=== PATIENT | female | born 1965 ===

== ENCOUNTER 2019-10-31 13:19 | Inpatient (IN) | payer OTHER ==
[~2019-10-31] VITALS: Ht 152.4 cm; Wt 44.3 kg
[2019-10-31] VITALS (12 sets, daily range): BP systolic 118–150; BP diastolic 40–77
[2019-10-31] MEDS ORDERED: ALBUTEROL INH (13:58)
[2019-10-31] MEDS ORDERED: LOSA100T14 PO (13:58)
[2019-10-31] MEDS ORDERED: FOLI-17 PO (13:58)
[2019-10-31] MEDS ORDERED: AMLO-150 PO (13:58)
[2019-10-31] MEDS ORDERED: PROP20TA PO (13:58)
--- NOTE | 2019-10-31 13:58 | NUR ---
PT IS LAYING IN BED, GASPING FOR BREATH BETWEEN SENTENCES, O2 SATS ABOVE 90. PT STATES JAUNDICE OCCURS EVERY 3 MONTHS, NO SIGNS OF DISTRESS. PT ABLE TO GET SELF OUT OF CLOTHES AND INTO BED. PA TO BEDSIDE.
[2019-10-31] MEDS ORDERED: SODIUM CHLORIDE 0.9% 1,000ML IVBOLUS ONE (14:30)
[2019-10-31] MEDS ORDERED: SODIUM CHLORIDE FLUSH 10ML SYR IVF ONE (14:30)
--- NOTE | 2019-10-31 14:43 | NUR ---
Pt medicated per emar, piv established
[2019-10-31 14:46] LABS: ALANINE AMINOTRANSFERASE 332 U/L (12-78); ALBUMIN 3.9 g/dL (3.4-5.0); ANION GAP 22 mmol/L (5-15); CALCIUM 8.7 mg/dL (8.5-10.1); CHLORIDE 105 mmol/L (98-107); CREATININE 1.06 mg/dL (0.55-1.02)
[2019-10-31 14:47] LABS: INTERNATIONAL NORMALIZED RATIO 2.23 (0.93-1.1); PROTHROMBIN TIME 23.8 Seconds (9.6-11.5)
[2019-10-31 14:50] LABS: ALKALINE PHOSPHATASE 84 U/L (45-117); TOTAL PROTEIN 6.5 g/dL (6.4-8.2); TROPONIN I < 0.015 ng/mL (0.000-0.045)
[2019-10-31 14:56] LABS: MEAN CORPUSCULAR HEMOGLOBIN 29.9 pg (27.0-34.8); MEAN CORPUSCULAR HGB CONC 36.1 g/dL (32.4-35.8); MEAN CORPUSCULAR VOLUME 82.9 fL (80-100); RED BLOOD COUNT 0.94 x10^6/uL (3.82-5.3)
[2019-10-31 15:01] LABS: RED CELL DISTRIBUTION WIDTH 32.2 % (9.6-15.2)
--- NOTE | 2019-10-31 15:02 | NUR ---
CRITICAL LABS CALLED: [facility] 2.8 AND 7.[address] WAYNE NOTIFIED. PRIMARY RN AT BEDSIDE WITH THIS PT FOR LINE PLACEMENT.
[2019-10-31 15:06] LABS: MEAN PLATELET VOLUME 9.6 fL (7.4-10.4); PLATELET COUNT 19 x10^3/uL (130-400)
--- NOTE | 2019-10-31 15:10 | NUR ---
With Nancy NEWELL emergent transfusion verified with Dr. Wade. Pt has two pivs.
--- NOTE | 2019-10-31 15:14 | NUR ---
Cat informed of low h/h, report back to Melia NEWELL
--- NOTE | 2019-10-31 15:33 | NUR ---
DYE OPERATOR: ONC MD DR. TUCKER/DR. MESSER PAGED PER ERP DR. WAYNE REQUEST
--- NOTE | 2019-10-31 15:35 | NUR ---
NASAL CANNULA IN PLACE.
--- NOTE | 2019-10-31 15:47 | NUR ---
MYRA Ocampo RN, AND EPHRAIM Rodriguez RN WITNESSED CONSENT TO GIVE BLOOD BEFORE TRANSFUSION BEGAN. THIS RN AND EPHRAIM Rodriguez RN, CHECKED CORRECT BLOOD TYPE, W #, AND CORRECT PT. BLOOD TRANSFUSION BEGAN AT 1530. VS: TEMP 98.1, BP 121/40, HR 108, O2 100% ON RA, RR 29. 15 MINUTE VS AT 1545: TEMP 98.7, BP 124/55, HR 104, O2 100% ON RA, RR 22. PT REMAINS AWAKE AND ALERT, NO SIGNS OF DISTRESS. PT ABLE TO HOLD CUP OF ICE CHIPS AND CONCERNED ABOUT COVER FOR CUP TO PROTECT FROM GERMS, PT PROVIDED A PAPER TOWEL FOR THIS.
[2019-10-31 15:49] LABS: MD YES
--- NOTE | 2019-10-31 15:59 | NUR ---
REFINERY PROCESS ENGINEER: JUAN A MIRAMONTES PAGED PER ERP DR. WAYNE REQUEST.
[2019-10-31 16:17] LABS: BAND#(MANUAL) 0.03 x10^3/uL; BANDS%(MANUAL) 1 % (0-7); LYMPH#(MANUAL) 1.79 x10^3/uL (1-3.4); LYMPHS% (MANUAL) 69 % (22-44); MONOS#(MANUAL) 0.03 x10^3/uL (0.3-2.7); MONOS% (MANUAL) 1 % (2-9); SEG#(MANUAL) 0.75 x10^3/uL (1.8-6.8); SEGS% (MANUAL) 29 % (42-75)
[2019-10-31 16:19] LABS: ANISOCYTOSIS 2+; POLYCHROMASIA 1+; TEAR DROPS 1+
[2019-10-31 16:20] LABS: <PLATELET ESTIMATE> DECREASED; <PLT MORPHOLOGY> NORMAL PLT MORPH
[2019-10-31 16:21] LABS: OVALOCYTES 2+
[2019-10-31] MEDS ORDERED: SODIUM CHLORIDE FLUSH 10ML SYR IVF PRN (16:30)
--- NOTE | 2019-10-31 16:41 | NUR ---
Pt assisted to bedside commode.
--- NOTE | 2019-10-31 17:10 | NUR ---
PT LAYING IN BED, EYES CLOSED, RESPIRATIONS EVEN AND UNLABORED, NO SIGNS OF DISTRESS. PT STATES SHE FEELS BETTER. PT SKIN RETURNING TO PINK, SCLERA NOW MORE WHITE THAN YELLOW.
--- NOTE | 2019-10-31 17:26 | NUR ---
REPORT GIVEN TO REECE QUIROGA.
[2019-10-31] MEDS ORDERED: ONDANSETRON 2MG/ML, 2ML IVPush PRN (18:00)
--- NOTE | 2019-10-31 18:04 | NUR ---
PT TALKING WITH RN, NO SOB, MAKING JOKES.
--- NOTE | 2019-10-31 18:20 | NUR ---
SEE TRANSFUSION VITALS FOR HOURLY VITAL UPDATES.
[2019-10-31 18:54] LABS: ABSOLUTE RETICS # 0.06 x10^6/uL (0.5-2.5); RETICULOCYTE COUNT % 4.42 % (0.5-1.5)
[2019-10-31 18:56] LABS: RED BLOOD COUNT 1.36 x10^6/uL (3.82-5.3)
[2019-10-31 23:31] LABS: MEAN CORPUSCULAR HEMOGLOBIN 30.7 pg (27.0-34.8); MEAN CORPUSCULAR HGB CONC 35.1 g/dL (32.4-35.8); MEAN CORPUSCULAR VOLUME 87.3 fL (80-100); MEAN PLATELET VOLUME 8.6 fL (7.4-10.4); RED BLOOD COUNT 3.07 x10^6/uL (3.82-5.3); RED CELL DISTRIBUTION WIDTH 15.1 % (9.6-15.2)
[2019-10-31 23:33] LABS: PLATELET COUNT 25 x10^3/uL (130-400)
[2019-10-31 23:35] LABS: FIBRINOGEN 205 mg/dL (200-340); PARTIAL THROMBOPLASTIN TIME 26 Seconds (25-31); PROTHROMBIN TIME 16.5 Seconds (9.6-11.5); THROMBIN TIME 17.9 Seconds (14-19)
[2019-10-31 23:42] LABS: % IRON SATURATION 85 % (20-55); IRON LEVEL 259 mcg/dL (50-170); TOTAL IRON BINDING CAPACITY 306 mcg/dL (250-450)
[2019-11-01 00:17] LABS: BASOPHILS % (AUTO) 0 % (0-1); EOSINOPHILS % (AUTO) 0 % (1-7); LYMPHOCYTES % (AUTO) 73 % (22-44); MD SCAN; MONOCYTES # (AUTO) 0.01 x10^3/uL (0.2-0.8); MONOCYTES % (AUTO) 1 % (2-9); NEUTROPHILS # (AUTO) 0.47 x10^3/uL (1.8-6.8); NEUTROPHILS % (AUTO) 26 % (42-75)
[2019-11-01 05:05] LABS: ALBUMIN 3.6 g/dL (3.4-5.0); ANION GAP 9 mmol/L (5-15); CALCIUM 7.8 mg/dL (8.5-10.1); CHLORIDE 108 mmol/L (98-107)
[2019-11-01 05:09] LABS: MEAN CORPUSCULAR HEMOGLOBIN 30.8 pg (27.0-34.8); MEAN CORPUSCULAR HGB CONC 35.1 g/dL (32.4-35.8); MEAN CORPUSCULAR VOLUME 87.8 fL (80-100); MEAN PLATELET VOLUME 9.5 fL (7.4-10.4); RED BLOOD COUNT 3.07 x10^6/uL (3.82-5.3); RED CELL DISTRIBUTION WIDTH 15.6 % (9.6-15.2)
[2019-11-01 05:10] LABS: ALANINE AMINOTRANSFERASE 319 U/L (12-78); ALKALINE PHOSPHATASE 73 U/L (45-117); CREATINE KINASE, TOTAL 262 U/L (26-192); CREATININE 0.58 mg/dL (0.55-1.02); TOTAL PROTEIN 5.6 g/dL (6.4-8.2)
[2019-11-01 05:18] LABS: PLATELET COUNT 23 x10^3/uL (130-400)
[2019-11-01 05:44] LABS: MD YES
[2019-11-01 05:47] LABS: LYMPH#(MANUAL) 1.05 x10^3/uL (1-3.4); LYMPHS% (MANUAL) 70 % (22-44); NRBC % (MANUAL) 2 % (0-1); SEG#(MANUAL) 0.45 x10^3/uL (1.8-6.8); SEGS% (MANUAL) 30 % (42-75)
[2019-11-01 05:48] LABS: ANISOCYTOSIS 1+
[2019-11-01 05:49] LABS: <PLATELET ESTIMATE> DECREASED; <PLT MORPHOLOGY> NORMAL PLT MORPH; OVALOCYTES 1+; POLYCHROMASIA 1+
[2019-11-01 06:32] LABS: BILIRUBIN, DIRECT 1.4 mg/dL (0.1-0.2)
[2019-11-01 06:57] LABS: BILIRUBIN,INDIRECT 10.2 mg/dL (0.0-2.0); BILIRUBIN,TOTAL 11.6 mg/dL (0.2-1.0)
[2019-11-01 08:30] LABS: PT 1:1 MIX 11.7 Seconds (9.6-11.5)
[2019-11-01 16:36] VITALS: BP 121/60
[2019-11-01] MEDS ORDERED: POTASSIUM CHLORIDE 20 MEQ TAB.ER.PRT PO ONE (19:00)
[2019-11-01 20:09] VITALS: BP 132/70
[2019-11-01 21:50] LABS: MICROSCOPIC INDICATED
[2019-11-01 21:58] LABS: CULTURE INDICATED? NO
[2019-11-02 01:36] VITALS: BP 118/70
[2019-11-02 06:59] LABS: ALANINE AMINOTRANSFERASE 551 U/L (12-78); ALBUMIN 3.3 g/dL (3.4-5.0); ANION GAP 6 mmol/L (5-15); CALCIUM 7.8 mg/dL (8.5-10.1); CHLORIDE 108 mmol/L (98-107); CHOLESTEROL, TOTAL 56 mg/dL (140-239); CREATININE 0.64 mg/dL (0.55-1.02)
[2019-11-02 07:02] LABS: ALKALINE PHOSPHATASE 72 U/L (45-117); BILIRUBIN,TOTAL 5.6 mg/dL (0.2-1.0); TOTAL PROTEIN 5.6 g/dL (6.4-8.2)
[2019-11-02 07:03] LABS: HDL CHOLESTEROL (DIRECT) 32 mg/dL (40-60)
[2019-11-02 07:04] LABS: TRIGLYCERIDES 72 mg/dL (50-200); VLDL CHOLESTEROL 14 mg/dL (0-25)
[2019-11-02 07:29] LABS: INTERNATIONAL NORMALIZED RATIO 1.3 (0.93-1.1); PROTHROMBIN TIME 13.8 Seconds (9.6-11.5)
[2019-11-02 07:54] VITALS: BP 146/71
[2019-11-02 08:04] LABS: MEAN CORPUSCULAR HEMOGLOBIN 30.5 pg (27.0-34.8); MEAN CORPUSCULAR HGB CONC 34.8 g/dL (32.4-35.8); MEAN CORPUSCULAR VOLUME 87.6 fL (80-100); MEAN PLATELET VOLUME 9.8 fL (7.4-10.4); RED BLOOD COUNT 3.01 x10^6/uL (3.82-5.3); RED CELL DISTRIBUTION WIDTH 15.7 % (9.6-15.2)
[2019-11-02 08:05] LABS: CHOL/HDL RATIO 1.8; HDL CHOL % 55 % (28-40); LDL CHOLESTEROL,CALCULATED 11 mg/dL (54-169); LDL/HDL RATIO 0.3 (0.5-3.0)
[2019-11-02 08:07] LABS: PLATELET COUNT 17 x10^3/uL (130-400)
[2019-11-02] MEDS: LOSARTAN 100 MG TAB PO SCH (08:19)
[2019-11-02] MEDS: FOLIC ACID 1 MG TABLET PO SCH (08:20)
[2019-11-02] MEDS: AMLODIPINE 5 MG TABLET PO SCH (08:20)
[2019-11-02] MEDS: PROPRANOLOL 20 MG TABLET PO SCH (08:20)
[2019-11-02 09:26] LABS: MD YES
[2019-11-02 09:29] LABS: ANISOCYTOSIS 1+; EOS#(MANUAL) 0.01 x10^3/uL (0.0-0.4); EOS% (MANUAL) 1 % (1-7); LYMPH#(MANUAL) 1.09 x10^3/uL (1-3.4); LYMPHS% (MANUAL) 84 % (22-44); OVALOCYTES 1+; POLYCHROMASIA 1+; SEGS% (MANUAL) 15 % (42-75)
[2019-11-02 09:30] LABS: <PLATELET ESTIMATE> DECREASED; <PLT MORPHOLOGY> NORMAL PLT MORPH
[2019-11-02] MEDS: POTASSIUM CHLORIDE 20 MEQ TAB.ER.PRT PO SCH ×2 (09:52→20:40)
[2019-11-02] MEDS: ACETYLCYSTEINE 600 MG CAPSULE PO SCH ×2 (09:52→20:40)
[2019-11-02 14:40] VITALS: BP 118/65
[2019-11-02 17:46] LABS: OCCULT BLOOD NEGATIVE (NEGATIVE)
[2019-11-02 18:39] VITALS: BP 120/69
[2019-11-03 01:11] VITALS: BP 124/67
[2019-11-03 05:53] VITALS: BP 133/80
[2019-11-03 05:53] LABS: ALBUMIN 3.1 g/dL (3.4-5.0); ANION GAP 6 mmol/L (5-15); CALCIUM 7.8 mg/dL (8.5-10.1); CHLORIDE 112 mmol/L (98-107)
[2019-11-03 05:57] LABS: ALANINE AMINOTRANSFERASE 445 U/L (12-78); ALKALINE PHOSPHATASE 69 U/L (45-117); BILIRUBIN, DIRECT 0.4 mg/dL (0.1-0.2); CREATININE 0.53 mg/dL (0.55-1.02); TOTAL PROTEIN 5.6 g/dL (6.4-8.2)
[2019-11-03 06:33] LABS: MEAN CORPUSCULAR HEMOGLOBIN 29.8 pg (27.0-34.8); MEAN CORPUSCULAR HGB CONC 34.3 g/dL (32.4-35.8); MEAN CORPUSCULAR VOLUME 86.8 fL (80-100); MEAN PLATELET VOLUME 7.8 fL (7.4-10.4); RED BLOOD COUNT 2.74 x10^6/uL (3.82-5.3); RED CELL DISTRIBUTION WIDTH 16.5 % (9.6-15.2)
[2019-11-03 06:36] LABS: PLATELET COUNT 11 x10^3/uL (130-400)
[2019-11-03 06:37] LABS: MD YES
[2019-11-03 06:41] LABS: BAND#(MANUAL) 0.01 x10^3/uL; BANDS%(MANUAL) 1 % (0-7); EOS#(MANUAL) 0.01 x10^3/uL (0.0-0.4); EOS% (MANUAL) 1 % (1-7); LYMPH#(MANUAL) 1.01 x10^3/uL (1-3.4); LYMPHS% (MANUAL) 92 % (22-44); NRBC % (MANUAL) 1 % (0-1); SEG#(MANUAL) 0.07 x10^3/uL (1.8-6.8); SEGS% (MANUAL) 6 % (42-75)
[2019-11-03 06:43] LABS: <PLATELET ESTIMATE> DECREASED; <PLT MORPHOLOGY> NORMAL PLT MORPH; ANISOCYTOSIS 1+; OVALOCYTES 1+
[2019-11-03 07:40] VITALS: BP 147/62
[2019-11-03] MEDS: PROPRANOLOL 20 MG TABLET PO SCH (07:41)
[2019-11-03] MEDS: LOSARTAN 100 MG TAB PO SCH (07:41)
[2019-11-03] MEDS: AMLODIPINE 5 MG TABLET PO SCH (07:41)
[2019-11-03] MEDS: ACETYLCYSTEINE 600 MG CAPSULE PO SCH ×2 (07:41→21:45)
[2019-11-03] MEDS: FOLIC ACID 1 MG TABLET PO SCH (07:41)
[2019-11-03] MEDS ORDERED: REGADENOSON 0.4 MG/5 ML SYRINGE ONE (10:16)
[2019-11-03] MEDS: POTASSIUM CHLORIDE 20 MEQ TAB.ER.PRT PO SCH ×2 (11:16→21:45)
[2019-11-03] MEDS: PHYTONADIONE 10 MG/ML, 1ML SQ SCH (11:16)
[2019-11-03 15:42] VITALS: BP 147/77
[2019-11-03 19:24] VITALS: BP 147/74
[2019-11-04 01:48] VITALS: BP 143/85
[2019-11-04 05:56] LABS: ALBUMIN 3.2 g/dL (3.4-5.0); ANION GAP 3 mmol/L (5-15); CALCIUM 8.5 mg/dL (8.5-10.1); CHLORIDE 112 mmol/L (98-107)
[2019-11-04 06:00] LABS: ALANINE AMINOTRANSFERASE 365 U/L (12-78); ALKALINE PHOSPHATASE 71 U/L (45-117); BILIRUBIN,TOTAL 2.1 mg/dL (0.2-1.0); CREATININE 0.63 mg/dL (0.55-1.02); TOTAL PROTEIN 5.7 g/dL (6.4-8.2)
[2019-11-04 06:03] LABS: MEAN CORPUSCULAR HEMOGLOBIN 29.9 pg (27.0-34.8); MEAN CORPUSCULAR VOLUME 87.9 fL (80-100); RED BLOOD COUNT 2.78 x10^6/uL (3.82-5.3); RED CELL DISTRIBUTION WIDTH 15.8 % (9.6-15.2)
[2019-11-04 07:05] LABS: MD YES; MEAN PLATELET VOLUME 7.4 fL (7.4-10.4)
[2019-11-04 07:09] LABS: PLATELET COUNT 9 x10^3/uL (130-400)
[2019-11-04 07:15] LABS: EOS#(MANUAL) 0.02 x10^3/uL (0.0-0.4); EOS% (MANUAL) 2 % (1-7); LYMPH#(MANUAL) 1.07 x10^3/uL (1-3.4); LYMPHS% (MANUAL) 89 % (22-44); MONOS#(MANUAL) 0.04 x10^3/uL (0.3-2.7); MONOS% (MANUAL) 3 % (2-9); SEG#(MANUAL) 0.07 x10^3/uL (1.8-6.8); SEGS% (MANUAL) 6 % (42-75)
[2019-11-04 07:16] LABS: ANISOCYTOSIS 1+; OVALOCYTES 1+
[2019-11-04 07:18] LABS: <PLATELET ESTIMATE> DECREASED
[2019-11-04 07:19] LABS: <PLT MORPHOLOGY> NORMAL PLT MORPH
[2019-11-04 08:10] VITALS: BP 145/76
[2019-11-04] MEDS ORDERED: FENTANYL PF 100 MCG/2ML ONE (09:14)
[2019-11-04] MEDS: LOSARTAN 100 MG TAB PO SCH (09:14)
[2019-11-04] MEDS: PROPRANOLOL 20 MG TABLET PO SCH (09:15)
[2019-11-04] MEDS: ACETYLCYSTEINE 600 MG CAPSULE PO SCH ×2 (09:15→21:21)
[2019-11-04] MEDS ORDERED: NALOXONE 1 MG/ML, 2ML ONE (09:15)
[2019-11-04] MEDS: AMLODIPINE 5 MG TABLET PO SCH (09:15)
[2019-11-04] MEDS ORDERED: MIDAZOLAM 1 MG/ML, 5ML ONE (09:15)
[2019-11-04] MEDS ORDERED: FLUMAZENIL 0.1 MG/1 ML, 5ML ONE (09:15)
[2019-11-04] MEDS: POTASSIUM CHLORIDE 20 MEQ TAB.ER.PRT PO SCH ×2 (09:15→21:21)
[2019-11-04] MEDS: PHYTONADIONE 10 MG/ML, 1ML SQ SCH (09:15)
[2019-11-04] MEDS: FOLIC ACID 1 MG TABLET PO SCH (09:15)
[2019-11-04 10:40] VITALS: BP 112/71
[2019-11-04 14:30] VITALS: BP 122/77
[2019-11-04 19:52] VITALS: BP 126/59
[2019-11-05 01:08] VITALS: BP 136/70
[2019-11-05 05:17] LABS: INTERNATIONAL NORMALIZED RATIO 1.11 (0.93-1.1); PROTHROMBIN TIME 11.8 Seconds (9.6-11.5)
[2019-11-05 05:22] LABS: ANION GAP 6 mmol/L (5-15); CALCIUM 9.2 mg/dL (8.5-10.1); CHLORIDE 107 mmol/L (98-107); CREATININE 0.59 mg/dL (0.55-1.02)
[2019-11-05 05:33] LABS: MEAN CORPUSCULAR HEMOGLOBIN 30.1 pg (27.0-34.8); MEAN CORPUSCULAR HGB CONC 34.5 g/dL (32.4-35.8); MEAN CORPUSCULAR VOLUME 87.2 fL (80-100); MEAN PLATELET VOLUME 8.4 fL (7.4-10.4); RED BLOOD COUNT 2.68 x10^6/uL (3.82-5.3); RED CELL DISTRIBUTION WIDTH 16.1 % (9.6-15.2)
[2019-11-05 05:36] LABS: PLATELET COUNT 11 x10^3/uL (130-400)
[2019-11-05 05:59] LABS: MD YES
[2019-11-05 06:05] LABS: <PLATELET ESTIMATE> DECREASED; <PLT MORPHOLOGY> NORMAL PLT MORPH; ANISOCYTOSIS 1+; LYMPH#(MANUAL) 0.91 x10^3/uL (1-3.4); LYMPHS% (MANUAL) 91 % (22-44); MONOS#(MANUAL) 0.01 x10^3/uL (0.3-2.7); MONOS% (MANUAL) 1 % (2-9); NRBC % (MANUAL) 1 % (0-1); OVALOCYTES 1+; SEG#(MANUAL) 0.08 x10^3/uL (1.8-6.8); SEGS% (MANUAL) 8 % (42-75)
[2019-11-05 08:03] VITALS: BP 124/74
[2019-11-05] MEDS: PROPRANOLOL 20 MG TABLET PO SCH (08:51)
[2019-11-05] MEDS: ACETYLCYSTEINE 600 MG CAPSULE PO SCH ×2 (08:52→21:55)
[2019-11-05] MEDS: AMLODIPINE 5 MG TABLET PO SCH (08:52)
[2019-11-05] MEDS: FOLIC ACID 1 MG TABLET PO SCH (08:52)
[2019-11-05] MEDS: LOSARTAN 100 MG TAB PO SCH (08:53)
[2019-11-05] MEDS: POTASSIUM CHLORIDE 20 MEQ TAB.ER.PRT PO SCH ×2 (08:54→21:54)
[2019-11-05] MEDS: PHYTONADIONE 10 MG/ML, 1ML SQ SCH (08:56)
[2019-11-05 12:20] VITALS: BP 125/78
[2019-11-05 21:42] VITALS: BP 155/76
[2019-11-05 22:27] VITALS: BP 155/76
[2019-11-06] VITALS (10 sets, daily range): BP systolic 102–156; BP diastolic 68–91
[2019-11-06 06:03] LABS: ALBUMIN 3.7 g/dL (3.4-5.0); ANION GAP 7 mmol/L (5-15); CALCIUM 9.3 mg/dL (8.5-10.1); CHLORIDE 106 mmol/L (98-107)
[2019-11-06 06:07] LABS: ALANINE AMINOTRANSFERASE 330 U/L (12-78); ALKALINE PHOSPHATASE 87 U/L (45-117); BILIRUBIN,TOTAL 1.7 mg/dL (0.2-1.0); CREATININE 0.64 mg/dL (0.55-1.02); TOTAL PROTEIN 6.5 g/dL (6.4-8.2)
[2019-11-06 06:23] LABS: MEAN CORPUSCULAR HEMOGLOBIN 29.9 pg (27.0-34.8); MEAN CORPUSCULAR HGB CONC 34.6 g/dL (32.4-35.8); MEAN CORPUSCULAR VOLUME 86.4 fL (80-100); RED BLOOD COUNT 2.84 x10^6/uL (3.82-5.3)
[2019-11-06 06:52] LABS: MEAN PLATELET VOLUME 7.4 fL (7.4-10.4)
[2019-11-06 06:53] LABS: MD YES
[2019-11-06 06:55] LABS: LYMPH#(MANUAL) 1.12 x10^3/uL (1-3.4); LYMPHS% (MANUAL) 93 % (22-44); MONOS#(MANUAL) 0.02 x10^3/uL (0.3-2.7); MONOS% (MANUAL) 2 % (2-9); NRBC % (MANUAL) 1 % (0-1); SEG#(MANUAL) 0.06 x10^3/uL (1.8-6.8); SEGS% (MANUAL) 5 % (42-75)
[2019-11-06 06:56] LABS: <PLATELET ESTIMATE> DECREASED; <PLT MORPHOLOGY> QNS FOR PLT MORPH; OVALOCYTES 1+; PLATELET COUNT 7 x10^3/uL (130-400)
[2019-11-06] MEDS: LOSARTAN 100 MG TAB PO SCH (08:22)
[2019-11-06] MEDS: FOLIC ACID 1 MG TABLET PO SCH (08:23)
[2019-11-06] MEDS: PROPRANOLOL 20 MG TABLET PO SCH (08:23)
[2019-11-06] MEDS: AMLODIPINE 5 MG TABLET PO SCH (08:23)
[2019-11-06] MEDS: PHYTONADIONE 10 MG/ML, 1ML SQ SCH (08:24)
[2019-11-06] MEDS ORDERED: DIPHENHYDRAMINE 50 MG/ML, 1ML IVPush ONE (08:30)
[2019-11-06] MEDS ORDERED: DIPHENHYDRAMINE 50 MG/ML, 1ML ONE (08:31)
[2019-11-06] MEDS: POTASSIUM CHLORIDE 20 MEQ TAB.ER.PRT PO SCH ×2 (08:33→21:27)
[2019-11-06] MEDS: ACETYLCYSTEINE 600 MG CAPSULE PO SCH ×2 (08:33→21:27)
[2019-11-06] MEDS ORDERED: methylPREDNISolone SOD SUCC 40 MG/ML IV SCH (09:30)
[2019-11-06] MEDS: HYDROCORTISONE 100 MG INJ. IVPush SCH (14:36)
[2019-11-07 01:46] VITALS: BP 133/80
[2019-11-07 05:22] LABS: MEAN CORPUSCULAR HEMOGLOBIN 29.9 pg (27.0-34.8); MEAN CORPUSCULAR HGB CONC 34.7 g/dL (32.4-35.8); MEAN CORPUSCULAR VOLUME 86.2 fL (80-100); MEAN PLATELET VOLUME 8.5 fL (7.4-10.4); RED CELL DISTRIBUTION WIDTH 15.3 % (9.6-15.2)
[2019-11-07 05:26] LABS: PLATELET COUNT 44 x10^3/uL (130-400)
[2019-11-07 05:52] LABS: MD YES
[2019-11-07 05:57] LABS: LYMPH#(MANUAL) 0.73 x10^3/uL (1-3.4); LYMPHS% (MANUAL) 81 % (22-44); MONOS#(MANUAL) 0.01 x10^3/uL (0.3-2.7); MONOS% (MANUAL) 1 % (2-9); SEG#(MANUAL) 0.16 x10^3/uL (1.8-6.8); SEGS% (MANUAL) 18 % (42-75)
[2019-11-07 05:59] LABS: <PLATELET ESTIMATE> DECREASED; <PLT MORPHOLOGY> NORMAL PLT MORPH; OVALOCYTES 1+
[2019-11-07 07:58] VITALS: BP 137/76
[2019-11-07 10:18] VITALS: BP 128/69
[2019-11-07] MEDS: POTASSIUM CHLORIDE 20 MEQ TAB.ER.PRT PO SCH ×2 (10:22→21:14)
[2019-11-07] MEDS: ACETYLCYSTEINE 600 MG CAPSULE PO SCH ×2 (10:22→22:47)
[2019-11-07] MEDS: FOLIC ACID 1 MG TABLET PO SCH (10:23)
[2019-11-07] MEDS: PROPRANOLOL 20 MG TABLET PO SCH (10:23)
[2019-11-07] MEDS: AMLODIPINE 5 MG TABLET PO SCH (10:24)
[2019-11-07] MEDS: LOSARTAN 100 MG TAB PO SCH (10:24)
[2019-11-07] MEDS: PHYTONADIONE 10 MG/ML, 1ML SQ SCH (10:24)
[2019-11-07 13:42] VITALS: BP 107/60
[2019-11-07 18:58] VITALS: BP 104/65
[2019-11-08 04:36] VITALS: BP 126/75
[2019-11-08 08:06] VITALS: BP 132/71
[2019-11-08] MEDS: PROPRANOLOL 20 MG TABLET PO SCH (08:28)
[2019-11-08] MEDS: AMLODIPINE 5 MG TABLET PO SCH (08:28)
[2019-11-08] MEDS: FOLIC ACID 1 MG TABLET PO SCH (08:28)
[2019-11-08] MEDS: POTASSIUM CHLORIDE 20 MEQ TAB.ER.PRT PO SCH ×2 (08:29→20:12)
[2019-11-08] MEDS: ACETYLCYSTEINE 600 MG CAPSULE PO SCH ×2 (08:33→20:12)
[2019-11-08 08:37] LABS: ALANINE AMINOTRANSFERASE 253 U/L (12-78); ANION GAP 5 mmol/L (5-15); CALCIUM 9.1 mg/dL (8.5-10.1); CHLORIDE 107 mmol/L (98-107); CREATININE 0.73 mg/dL (0.55-1.02)
[2019-11-08 08:39] LABS: ALKALINE PHOSPHATASE 94 U/L (45-117); BILIRUBIN,TOTAL 1.9 mg/dL (0.2-1.0); TOTAL PROTEIN 6.9 g/dL (6.4-8.2)
[2019-11-08 08:53] LABS: MEAN CORPUSCULAR HEMOGLOBIN 29.9 pg (27.0-34.8); MEAN CORPUSCULAR HGB CONC 34.9 g/dL (32.4-35.8); MEAN CORPUSCULAR VOLUME 85.8 fL (80-100); MEAN PLATELET VOLUME 8.3 fL (7.4-10.4); RED BLOOD COUNT 2.45 x10^6/uL (3.82-5.3); RED CELL DISTRIBUTION WIDTH 14.8 % (9.6-15.2)
[2019-11-08 08:54] LABS: MD YES; PLATELET COUNT 37 x10^3/uL (130-400)
[2019-11-08 09:17] LABS: <PLATELET ESTIMATE> DECREASED; <PLT MORPHOLOGY> NORMAL PLT MORPH; EOS#(MANUAL) 0.01 x10^3/uL (0.0-0.4); EOS% (MANUAL) 1 % (1-7); LYMPHS% (MANUAL) 82 % (22-44); OVALOCYTES 1+; SEG#(MANUAL) 0.19 x10^3/uL (1.8-6.8); SEGS% (MANUAL) 17 % (42-75)
[2019-11-08] MEDS: LOSARTAN 100 MG TAB PO SCH (09:58)
[2019-11-08 14:41] VITALS: BP 128/68
[2019-11-08 20:23] VITALS: BP 115/72
[2019-11-09 02:14] VITALS: BP 112/69
[2019-11-09] MEDS: CEFEPIME 2 GM in DEXTROSE 5% 100 ML IV SCH ×3 (03:15→19:49)
[2019-11-09 07:51] VITALS: BP 98/63
[2019-11-09 08:19] LABS: ALANINE AMINOTRANSFERASE 213 U/L (12-78); ALBUMIN 4.1 g/dL (3.4-5.0); ANION GAP 5 mmol/L (5-15); CALCIUM 9.4 mg/dL (8.5-10.1); CHLORIDE 106 mmol/L (98-107)
[2019-11-09 08:22] LABS: ALKALINE PHOSPHATASE 106 U/L (45-117); BILIRUBIN,TOTAL 2.9 mg/dL (0.2-1.0); CREATININE 0.76 mg/dL (0.55-1.02); TOTAL PROTEIN 7.5 g/dL (6.4-8.2)
[2019-11-09 08:32] LABS: MD YES; MEAN CORPUSCULAR HEMOGLOBIN 29.5 pg (27.0-34.8); MEAN CORPUSCULAR HGB CONC 34.2 g/dL (32.4-35.8); MEAN CORPUSCULAR VOLUME 86.4 fL (80-100); RED BLOOD COUNT 2.47 x10^6/uL (3.82-5.3); RED CELL DISTRIBUTION WIDTH 14.6 % (9.6-15.2)
[2019-11-09 08:51] LABS: PLATELET COUNT 27 x10^3/uL (130-400)
[2019-11-09 08:55] LABS: LYMPH#(MANUAL) 1.23 x10^3/uL (1-3.4); LYMPHS% (MANUAL) 82 % (22-44); SEG#(MANUAL) 0.27 x10^3/uL (1.8-6.8); SEGS% (MANUAL) 18 % (42-75)
[2019-11-09 08:56] LABS: <PLATELET ESTIMATE> DECREASED; <PLT MORPHOLOGY> NORMAL PLT MORPH; OVALOCYTES 1+
[2019-11-09] MEDS: POTASSIUM CHLORIDE 20 MEQ TAB.ER.PRT PO SCH ×2 (08:59→19:49)
[2019-11-09] MEDS: AMLODIPINE 5 MG TABLET PO SCH (09:00)
[2019-11-09] MEDS: LOSARTAN 50MG TABLET PO SCH (09:00)
[2019-11-09] MEDS: PROPRANOLOL 20 MG TABLET PO SCH (09:00)
[2019-11-09] MEDS: ACETYLCYSTEINE 600 MG CAPSULE PO SCH (09:00)
[2019-11-09] MEDS: FOLIC ACID 1 MG TABLET PO SCH (09:02)
[2019-11-09] MEDS: SODIUM CHLORIDE 0.9% 1,000 ML IV SCH ×2 (11:02→17:01)
[2019-11-09 11:14] LABS: CULTURE INDICATED? NO; MICROSCOPIC AUTO
[2019-11-09 12:49] VITALS: BP 116/60
[2019-11-09 19:34] VITALS: BP 109/67
[2019-11-10] VITALS (8 sets, daily range): BP systolic 99–141; BP diastolic 60–77
[2019-11-10] MEDS: CEFEPIME 2 GM in DEXTROSE 5% 100 ML IV SCH ×4 (03:19→20:49)
[2019-11-10] MEDS: SODIUM CHLORIDE 0.9% 1,000 ML IV SCH ×3 (03:20→20:49)
[2019-11-10 07:14] LABS: MEAN CORPUSCULAR HEMOGLOBIN 30.1 pg (27.0-34.8); MEAN CORPUSCULAR HGB CONC 35.3 g/dL (32.4-35.8); MEAN CORPUSCULAR VOLUME 85.2 fL (80-100); RED BLOOD COUNT 1.96 x10^6/uL (3.82-5.3); RED CELL DISTRIBUTION WIDTH 14.3 % (9.6-15.2)
[2019-11-10 07:15] LABS: ALANINE AMINOTRANSFERASE 171 U/L (12-78); ALBUMIN 3.5 g/dL (3.4-5.0); ANION GAP 6 mmol/L (5-15); CALCIUM 8.7 mg/dL (8.5-10.1); CHLORIDE 107 mmol/L (98-107); CREATININE 0.74 mg/dL (0.55-1.02)
[2019-11-10 07:17] LABS: ALKALINE PHOSPHATASE 93 U/L (45-117); BILIRUBIN,TOTAL 1.9 mg/dL (0.2-1.0); TOTAL PROTEIN 6.6 g/dL (6.4-8.2)
[2019-11-10 07:36] LABS: MEAN PLATELET VOLUME 8.9 fL (7.4-10.4)
[2019-11-10 07:37] LABS: MD YES
[2019-11-10 07:43] LABS: PLATELET COUNT 18 x10^3/uL (130-400)
[2019-11-10 07:47] LABS: <PLATELET ESTIMATE> DECREASED; <PLT MORPHOLOGY> NORMAL PLT MORPH; LYMPH#(MANUAL) 1.06 x10^3/uL (1-3.4); LYMPHS% (MANUAL) 88 % (22-44); OVALOCYTES 1+; SEG#(MANUAL) 0.14 x10^3/uL (1.8-6.8); SEGS% (MANUAL) 12 % (42-75)
[2019-11-10 08:46] LABS: INTERNATIONAL NORMALIZED RATIO 1.2 (0.93-1.1); PROTHROMBIN TIME 12.7 Seconds (9.6-11.5)
[2019-11-10 09:04] LABS: ABSOLUTE RETICS # 0.003 x10^6/uL (0.5-2.5); RETICULOCYTE COUNT % 0.16 % (0.5-1.5)
[2019-11-10 09:06] LABS: RED BLOOD COUNT 1.96 x10^6/uL (3.82-5.3)
[2019-11-10] MEDS ORDERED: HYDROCORTISONE 100 MG INJ. IVPush PRN (10:00)
[2019-11-10] MEDS: PROPRANOLOL 20 MG TABLET PO SCH (10:14)
[2019-11-10] MEDS: POTASSIUM CHLORIDE 20 MEQ TAB.ER.PRT PO SCH ×2 (10:14→20:49)
[2019-11-10] MEDS: LOSARTAN 50MG TABLET PO SCH (10:15)
[2019-11-10] MEDS: AMLODIPINE 5 MG TABLET PO SCH (10:15)
[2019-11-10] MEDS: FOLIC ACID 1 MG TABLET PO SCH (10:15)
[2019-11-10] MEDS: HYDROCORTISONE 100 MG INJ. IVPush SCH (10:15)
[2019-11-11] VITALS (7 sets, daily range): BP systolic 117–150; BP diastolic 67–76
[2019-11-11] MEDS: SODIUM CHLORIDE 0.9% 1,000 ML IV SCH ×2 (04:41→16:00)
[2019-11-11] MEDS: CEFEPIME 2 GM in DEXTROSE 5% 100 ML IV SCH ×3 (04:41→19:57)
[2019-11-11 06:57] LABS: ANION GAP 7 mmol/L (5-15); CALCIUM 8.1 mg/dL (8.5-10.1); CHLORIDE 111 mmol/L (98-107)
[2019-11-11 06:58] LABS: CREATININE 0.64 mg/dL (0.55-1.02); MEAN CORPUSCULAR HEMOGLOBIN 30.1 pg (27.0-34.8); MEAN CORPUSCULAR HGB CONC 34.9 g/dL (32.4-35.8); MEAN CORPUSCULAR VOLUME 86.2 fL (80-100); RED BLOOD COUNT 2.32 x10^6/uL (3.82-5.3); RED CELL DISTRIBUTION WIDTH 13.9 % (9.6-15.2)
[2019-11-11 07:02] LABS: MEAN PLATELET VOLUME 8.7 fL (7.4-10.4)
[2019-11-11 07:03] LABS: PLATELET COUNT 12 x10^3/uL (130-400)
[2019-11-11 07:15] LABS: MD YES
[2019-11-11 07:19] LABS: LYMPH#(MANUAL) 1.02 x10^3/uL (1-3.4); LYMPHS% (MANUAL) 93 % (22-44); MONOS#(MANUAL) 0.02 x10^3/uL (0.3-2.7); MONOS% (MANUAL) 2 % (2-9); NRBC % (MANUAL) 1 % (0-1); OVALOCYTES 1+; SEG#(MANUAL) 0.06 x10^3/uL (1.8-6.8); SEGS% (MANUAL) 5 % (42-75)
[2019-11-11 07:20] LABS: <PLATELET ESTIMATE> DECREASED; <PLT MORPHOLOGY> NORMAL PLT MORPH
[2019-11-11] MEDS: AMLODIPINE 5 MG TABLET PO SCH (07:44)
[2019-11-11] MEDS: LOSARTAN 50MG TABLET PO SCH (07:44)
[2019-11-11] MEDS: PROPRANOLOL 20 MG TABLET PO SCH (07:44)
[2019-11-11] MEDS: POTASSIUM CHLORIDE 20 MEQ TAB.ER.PRT PO SCH ×4 (07:44→21:11)
[2019-11-11] MEDS: FOLIC ACID 1 MG TABLET PO SCH (07:44)
[2019-11-11] MEDS ORDERED: methylPREDNISolone SOD SUCC 125 MG/2 ML IVPush PRN (08:00)
[2019-11-12] MEDS: SODIUM CHLORIDE 0.9% 1,000 ML IV SCH ×3 (00:07→17:56)
[2019-11-12 00:13] VITALS: BP 148/72
[2019-11-12] MEDS: CEFEPIME 2 GM in DEXTROSE 5% 100 ML IV SCH ×3 (04:17→19:38)
[2019-11-12 04:18] LABS: ANION GAP 5 mmol/L (5-15); CHLORIDE 113 mmol/L (98-107); CREATININE 0.57 mg/dL (0.55-1.02)
[2019-11-12 04:25] LABS: ABSOLUTE RETICS # 0.006 x10^6/uL (0.5-2.5); RETICULOCYTE COUNT % 0.21 % (0.5-1.5)
[2019-11-12 04:29] LABS: RED BLOOD COUNT 3.02 x10^6/uL (3.82-5.3)
[2019-11-12 04:40] LABS: MEAN CORPUSCULAR HEMOGLOBIN 31.2 pg (27.0-34.8); MEAN CORPUSCULAR HGB CONC 35.4 g/dL (32.4-35.8); MEAN CORPUSCULAR VOLUME 88.1 fL (80-100); RED BLOOD COUNT 3.03 x10^6/uL (3.82-5.3); RED CELL DISTRIBUTION WIDTH 14.5 % (9.6-15.2)
[2019-11-12 05:05] LABS: MD YES; MEAN PLATELET VOLUME 8.9 fL (7.4-10.4)
[2019-11-12 05:06] LABS: PLATELET COUNT 11 x10^3/uL (130-400)
[2019-11-12 05:16] LABS: LYMPHS% (MANUAL) 83 % (22-44); SEGS% (MANUAL) 17 % (42-75)
[2019-11-12 05:17] LABS: <PLATELET ESTIMATE> DECREASED; <PLT MORPHOLOGY> NORMAL PLT MORPH; OVALOCYTES 1+
[2019-11-12 06:52] VITALS: BP 159/74
[2019-11-12] MEDS: LOSARTAN 50MG TABLET PO SCH (08:37)
[2019-11-12] MEDS: AMLODIPINE 5 MG TABLET PO SCH (08:37)
[2019-11-12] MEDS: POTASSIUM CHLORIDE 20 MEQ TAB.ER.PRT PO SCH ×3 (08:37→20:38)
[2019-11-12] MEDS: PROPRANOLOL 20 MG TABLET PO SCH (08:38)
[2019-11-12] MEDS: FOLIC ACID 1 MG TABLET PO SCH (08:38)
[2019-11-12 12:27] VITALS: BP 155/76
[2019-11-12 19:21] VITALS: BP 130/72
[2019-11-13 00:22] VITALS: BP 146/70
[2019-11-13] MEDS: SODIUM CHLORIDE 0.9% 1,000 ML IV SCH ×3 (01:05→21:05)
[2019-11-13] MEDS: CEFEPIME 2 GM in DEXTROSE 5% 100 ML IV SCH ×2 (04:09→15:09)
[2019-11-13 04:54] LABS: MEAN CORPUSCULAR HEMOGLOBIN 31.1 pg (27.0-34.8); MEAN CORPUSCULAR HGB CONC 35.4 g/dL (32.4-35.8); MEAN CORPUSCULAR VOLUME 87.8 fL (80-100); MEAN PLATELET VOLUME 7.4 fL (7.4-10.4); RED BLOOD COUNT 2.85 x10^6/uL (3.82-5.3); RED CELL DISTRIBUTION WIDTH 13.7 % (9.6-15.2)
[2019-11-13 04:57] LABS: PLATELET COUNT 7 x10^3/uL (130-400)
[2019-11-13 04:59] LABS: ALANINE AMINOTRANSFERASE 114 U/L (12-78); ALBUMIN 3.6 g/dL (3.4-5.0); ANION GAP 6 mmol/L (5-15); CALCIUM 8.8 mg/dL (8.5-10.1); CHLORIDE 112 mmol/L (98-107); CREATININE 0.54 mg/dL (0.55-1.02)
[2019-11-13 05:01] LABS: ALKALINE PHOSPHATASE 93 U/L (45-117); BILIRUBIN,TOTAL 1.9 mg/dL (0.2-1.0); TOTAL PROTEIN 6.7 g/dL (6.4-8.2)
[2019-11-13] MEDS ORDERED: methylPREDNISolone SOD SUCC 125 MG/2 ML IVPush ONE (06:00)
[2019-11-13 06:09] LABS: MD YES
[2019-11-13 06:12] LABS: LYMPH#(MANUAL) 1.13 x10^3/uL (1-3.4); LYMPHS% (MANUAL) 94 % (22-44); SEG#(MANUAL) 0.07 x10^3/uL (1.8-6.8); SEGS% (MANUAL) 6 % (42-75)
[2019-11-13 06:13] LABS: <PLATELET ESTIMATE> DECREASED; <PLT MORPHOLOGY> NORMAL PLT MORPH; OVALOCYTES 1+
[2019-11-13 07:37] VITALS: BP 113/61
[2019-11-13] MEDS: LOSARTAN 50MG TABLET PO SCH (09:30)
[2019-11-13] MEDS: POTASSIUM CHLORIDE 20 MEQ TAB.ER.PRT PO SCH ×3 (09:30→21:05)
[2019-11-13] MEDS: FOLIC ACID 1 MG TABLET PO SCH (09:31)
[2019-11-13] MEDS: AMLODIPINE 5 MG TABLET PO SCH (09:31)
[2019-11-13] MEDS: PROPRANOLOL 20 MG TABLET PO SCH (09:31)
[2019-11-13] MEDS ORDERED: methylPREDNISolone SOD SUCC 125 MG/2 ML ONE (10:55)
[2019-11-13 11:55] VITALS: BP 124/52
[2019-11-13 12:28] VITALS: BP 115/63
[2019-11-13 15:02] VITALS: BP 113/67
[2019-11-13 18:46] VITALS: BP 121/70
[2019-11-14] MEDS: CEFEPIME 2 GM in DEXTROSE 5% 100 ML IV SCH ×2 (00:01→08:39)
[2019-11-14 02:00] VITALS: BP 123/67
[2019-11-14] MEDS: SODIUM CHLORIDE 0.9% 1,000 ML IV SCH ×2 (05:05→13:00)
[2019-11-14 07:18] VITALS: BP 124/72
[2019-11-14 08:26] LABS: ALBUMIN 3.7 g/dL (3.4-5.0); ANION GAP 9 mmol/L (5-15); CHLORIDE 106 mmol/L (98-107)
[2019-11-14] MEDS: POTASSIUM CHLORIDE 20 MEQ TAB.ER.PRT PO SCH (08:30)
[2019-11-14] MEDS: FOLIC ACID 1 MG TABLET PO SCH (08:31)
[2019-11-14] MEDS: AMLODIPINE 5 MG TABLET PO SCH (08:31)
[2019-11-14] MEDS: LOSARTAN 50MG TABLET PO SCH (08:31)
[2019-11-14 08:32] LABS: ALANINE AMINOTRANSFERASE 97 U/L (12-78); ALKALINE PHOSPHATASE 97 U/L (45-117); BILIRUBIN,TOTAL 1.6 mg/dL (0.2-1.0); CREATININE 0.67 mg/dL (0.55-1.02)
[2019-11-14] MEDS: PROPRANOLOL 20 MG TABLET PO SCH (08:33)
[2019-11-14 08:55] LABS: MEAN CORPUSCULAR HGB CONC 35.1 g/dL (32.4-35.8); MEAN CORPUSCULAR VOLUME 88.3 fL (80-100); MEAN PLATELET VOLUME 8.3 fL (7.4-10.4); PLATELET COUNT 22 x10^3/uL (130-400); RED BLOOD COUNT 2.87 x10^6/uL (3.82-5.3); RED CELL DISTRIBUTION WIDTH 13.9 % (9.6-15.2)
[2019-11-14 08:56] LABS: MD YES
[2019-11-14 09:04] LABS: <PLATELET ESTIMATE> DECREASED; <PLT MORPHOLOGY> NORMAL PLT MORPH; LYMPHS% (MANUAL) 86 % (22-44); OVALOCYTES 1+; SEGS% (MANUAL) 14 % (42-75)
[2019-11-14] MEDS ORDERED: FLUC200T PO (10:05)
[2019-11-14] MEDS ORDERED: ACYC-114 PO (10:05)
[2019-11-14] MEDS ORDERED: TRAM50TA2 PO (10:05)
[2019-11-14] MEDS ORDERED: AMOX1TAB64 PO (10:05)
[2019-11-14] MEDS ORDERED: LEVO500T47 PO (10:40)
[2019-11-14 14:33] VITALS: BP 122/71
== END 2019-11-14 15:22 | disposition home or self-care (01) | DRG 840 ==
LOC: ED 13:47 → ICU 18:19 → 3WST 11-01 15:42 → 5SO 11-01 20:05 → 3WST 11-07 14:40
PROVIDERS: ADMIT Internal Medicine; ATTEND Emergency Medicine
PROC: 30233R1 Transfusion of Nonautologous Platelets into Peripheral Vein, Percutaneous Approach (ICD-10-PCS; 2019-10-31)
PROC: 30233N1 Transfusion of Nonautologous Red Blood Cells into Peripheral Vein, Percutaneous Approach (ICD-10-PCS; 2019-10-31)
PROC: 07DR3ZX Extraction of Iliac Bone Marrow, Percutaneous Approach, Diagnostic (ICD-10-PCS; principal; 2019-11-04)
DX: C91.10 Chronic lymphocytic leukemia of B-cell type not having achieved remission (principal); I21.4 Non-ST elevation (NSTEMI) myocardial infarction; B15.9 Hepatitis A without hepatic coma; D59.4 Other nonautoimmune hemolytic anemias; D61.818 Other pancytopenia; D68.9 Coagulation defect, unspecified; D69.42 Congenital and hereditary thrombocytopenia purpura; E87.1 Hypo-osmolality and hyponatremia; K92.0 Hematemesis; D56.3 Thalassemia minor; D63.8 Anemia in other chronic diseases classified elsewhere; E87.6 Hypokalemia; I10 Essential (primary) hypertension; Z20.828 Contact with and (suspected) exposure to other viral communicable diseases; I27.20 Pulmonary hypertension, unspecified; J45.909 Unspecified asthma, uncomplicated; R50.81 Fever presenting with conditions classified elsewhere; R53.82 Chronic fatigue, unspecified; Z80.0 Family history of malignant neoplasm of digestive organs; Z80.3 Family history of malignant neoplasm of breast; Z80.6 Family history of leukemia; Z87.891 Personal history of nicotine dependence; Z88.6 Allergy status to analgesic agent; Z90.49 Acquired absence of other specified parts of digestive tract; Z90.710 Acquired absence of both cervix and uterus; Z88.8 Allergy status to other drugs, medicaments and biological substances
CPT/HCPCS: 36415; 36430; 38222; 71045; 76700; 77012; 78452; 80048; 80053; 80061; 80074; 81001; 82247; 82248; 82272; 82550; 82607; 82728; 82784; 83010; 83516; 83540; 83550; 83615; 83735; 83880; 84100; 84443; 84484; 85014; 85018; 85025; 85045; 85060; 85097; 85384; 85610; 85670; 85730; 86038; 86078; 86157; 86255; 86644; 86645; 86664; 86665; 86704; 86706; 86708; 86747; 86803; 86850; 86880; 86900; 86923; 87040; 87081; 87205; 87340; 88237; 88264; 88280; 88305; 88311; 88313; 88341; 88342; 88360; 93005; 93017; 93306; 99156; 99157; G0378; J2250; J2405; J2785; J3010; J3430; A9502; J1200; J1720; J2310; J2920; J2930; J7030; P9016; P9035; P9037; P9040; U0001